=== PATIENT | male | born 1955 | race Caucasian/White ===

== ENCOUNTER 2019-02-12 13:08 | Emergency (ER) | payer OTHER ==
[2019-02-12] MEDS ORDERED: NA CHLORIDE 0.9% 500 ML ONE (14:49)
[2019-02-12] MEDS ORDERED: ONDANSETRON 4 MG/2 ML VIAL ONE (14:49)
[2019-02-12] MEDS ORDERED: DICYCLOMINE HCL 10 MG CAP ONE (14:58)
--- NOTE | 2019-02-12 15:37 | EDPHYS ---
Physician Documentation [facility] Name: Fercho Gamboa Age: 64 yrs Sex: Male : 1955 Arrival Date: 02/12/2019 Time: 13:12 Bed 18 Private MD: ED Physician Mic Montague HPI: 02/12 14:34 This 64 yrs old Male presents to ER via Ambulatory with complaints of ps1 Vomiting/Diarrhea. 14:34 nausea, vomiting, diarrhea x 1 day. Has not been able to keep anything down. No ps1 medications thus far. Had an upper respiratory infection week prior. No abdominal pain or fever. . Historical: - Allergies: 13:33 No Known Allergies; aa5 - PMHx: 13:33 Hyperlipidemia; Gout; Seasonal allergies; aa5 - PSHx: 13:33 None; aa5 - Immunization history:: Flu vaccine is up to date. - Social history:: Smoking status: Patient/guardian denies using tobacco. - Ebola Screening: : No symptoms or risks identified at this time. ROS: 14:34 Constitutional: Negative for fever, chills, and weight loss, Eyes: Negative for injury, ps1 pain, redness, and discharge, ENT: Negative for injury, pain, and discharge, Cardiovascular: Negative for chest pain, palpitations, and edema, Respiratory: Negative for shortness of breath, cough, wheezing, and pleuritic chest pain, MS/Extremity: Negative for injury and deformity, Skin: Negative for injury, rash, and discoloration, Neuro: Negative for headache, weakness, numbness, tingling, and seizure. 14:34 Abdomen/GI: Positive for nausea, vomiting, and diarrhea. Exam: 14:34 Constitutional: This is a well developed, well nourished patient who is awake, alert, ps1 and in no acute distress. Head/Face: Normocephalic, atraumatic. Eyes: Pupils equal round and reactive to light, extra-ocular motions intact. Lids and lashes normal. Conjunctiva and sclera are non-icteric and not injected. Chest/axilla: Normal chest wall appearance and motion. Nontender with no deformity. No lesions are appreciated. Cardiovascular: Regular rate and rhythm. No gallops, murmurs, or rubs. Normal PMI, no JVD. No pulse deficits. Respiratory: Lungs have equal breath sounds bilaterally, clear to auscultation and percussion. No rales, rhonchi or wheezes noted. No increased work of breathing, no retractions or nasal flaring. Abdomen/GI: Soft, non-tender, with normal bowel sounds. No distension or tympany. No guarding or rebound. No evidence of tenderness throughout. MS/ Extremity: Pulses equal, no cyanosis. Neurovascular intact. Full, normal range of motion. Neuro: Awake and alert, GCS 15, oriented to person, place, time, and situation. Cranial nerves II-XII grossly intact. Sensory grossly intact. Psych: Awake, alert, with orientation to person, place and time. Behavior, mood, and affect are within normal limits. Vital Signs: 13:34 BP 124 / 85; Pulse 56; Resp 16 S; Temp 99.6(O); Pulse Ox 96% on R/A; Weight 95.25 kg aa5 (R); Height 5 ft. 11 in. (180.34 cm) (R); Pain 7/10; 13:48 BP 141 / 92; Pulse 89; Resp 18; Pulse Ox 95% on R/A; hj 14:30 BP 138 / 89; Pulse 85; Resp 18; Pulse Ox 100% on R/A; hj 15:51 BP 135 / 85; Pulse 86; Resp 18; Pulse Ox 100% on R/A; hj 13:34 Body Mass Index 29.29 (95.25 kg, 180.34 cm) aa5 MDM: 14:46 Patient medically screened. ps1 Administered Medications: 14:39 Drug: NS 0.9% 500 ml Route: IV; Rate: bolus; Site: right antecubital; hj 15:49 Follow up: IV Status: Completed infusion; IV Intake: 500ml hj 14:39 Drug: Zofran 4 mg Route: IVP; Site: right antecubital; hj 14:48 Follow up: Response: No adverse reaction pc1 14:44 Drug: Bentyl 20 mg Route: PO; pc1 14:48 Follow up: Response: No adverse reaction pc1 Disposition: 02/12/19 15:37 Discharged to Home. Impression: Viral Gastroenteritis, nausea, vomiting, diarrhea. - Condition is Stable. - Discharge Instructions: Viral Gastroenteritis, Adult. - Prescriptions for Bentyl 10 mg Oral Capsule - take 1 capsule by ORAL route every 6 hours As needed; 40 capsule. Zofran 4 mg Oral Tablet - take 1 tablet by ORAL route every 12 hours As needed; 20 tablet. - Medication Reconciliation Form, Thank You Letter, Antibiotic Education, Prescription Opioid Use form. - Follow up: Private Physician; When: As needed; Reason: Recheck today's complaints. Follow up: Emergency Department; When: As needed. - Problem is new. - Symptoms have improved. Signatures: Leah Wilson RN RN aa5 Gagandeep Barragan RN RN hj Mic Montague MD MD ps1 Esequiel, Steve pc1 Corrections: (The following items were deleted from the chart) 15:50 15:37 02/12/2019 15:37 Discharged to Home. Impression: Viral Gastroenteritis; nausea, hj vomiting, diarrhea. Condition is Stable. Forms are Medication Reconciliation Form, Thank You Letter, Antibiotic Education, Prescription Opioid Use. Follow up: Private Physician; When: As needed; Reason: Recheck today's complaints. Follow up: Emergency Department; When: As needed. Problem is new. Symptoms have improved. ps1
--- NOTE | 2019-02-12 15:37 | ER ---
Nurse's Notes [facility] Name: Fercho Gamboa Age: 64 yrs Sex: Male : 1955 Arrival Date: 02/12/2019 Time: 13:12 Bed 18 Private MD: Diagnosis: Viral Gastroenteritis;nausea, vomiting, diarrhea Presentation: 02/12 13:32 Presenting complaint: Patient states: nausea/vomiting/diarrhea, fever, abd cramping, aa5 and back pain that began yesterday. Transition of care: patient was not received from another setting of care. Onset of symptoms was January 2019. Risk Assessment: Do you want to hurt yourself or someone else? Patient reports no desire to harm self or others. Initial Sepsis Screen: Does the patient meet any 2 criteria? No. Patient's initial sepsis screen is negative. Does the patient have a suspected source of infection? No. Patient's initial sepsis screen is negative. Care prior to arrival: None. 13:32 Method Of Arrival: Ambulatory aa5 13:32 Acuity: GUSTAVO 3 aa5 Triage Assessment: 13:36 General: Appears in no apparent distress. uncomfortable, Behavior is calm, cooperative, hj appropriate for age. Pain: Complains of pain in abdomen. GI: Reports lower abdominal pain, upper abdominal pain, diarrhea, nausea, vomiting. Historical: - Allergies: 13:33 No Known Allergies; aa5 - PMHx: 13:33 Hyperlipidemia; Gout; Seasonal allergies; aa5 - PSHx: 13:33 None; aa5 - Immunization history:: Flu vaccine is up to date. - Social history:: Smoking status: Patient/guardian denies using tobacco. - Ebola Screening: : No symptoms or risks identified at this time. Screenin:36 Abuse screen: Denies threats or abuse. Denies injuries from another. Nutritional hj screening: No deficits noted. Tuberculosis screening: No symptoms or risk factors identified. Fall Risk None identified. Assessment: 13:37 GI: Abdomen is non-distended. hj 13:37 General: Appears in no apparent distress. uncomfortable, Behavior is calm, cooperative, hj appropriate for age. Pain: Complains of pain in abdomen. Neuro: Level of Consciousness is awake, alert, obeys commands, Oriented to person, place, time, situation, Appropriate for age. Cardiovascular: Capillary refill < 3 seconds Patient's skin is warm and dry. Respiratory: Airway is patent Respiratory effort is even, unlabored, Respiratory pattern is regular, symmetrical. GI: Reports lower abdominal pain, upper abdominal pain, diarrhea, nausea, vomiting. : No signs and/or symptoms were reported regarding the genitourinary system. EENT: No signs and/or symptoms were reported regarding the EENT system. Derm: No signs and/or symptoms reported regarding the dermatologic system. Musculoskeletal: No signs and/or symptoms reported regarding the musculoskeletal system. 13:47 Reassessment: awaiting for provider;. hj 15:03 Reassessment: Patient and/or family updated on plan of care and expected duration. Pain hj level reassessed. Patient is alert, oriented x 3, equal unlabored respirations, skin warm/dry/pink. Patient states feeling better. Patient states symptoms have improved. Vital Signs: 13:34 BP 124 / 85; Pulse 56; Resp 16 S; Temp 99.6(O); Pulse Ox 96% on R/A; Weight 95.25 kg aa5 (R); Height 5 ft. 11 in. (180.34 cm) (R); Pain 7/10; 13:48 BP 141 / 92; Pulse 89; Resp 18; Pulse Ox 95% on R/A; hj 14:30 BP 138 / 89; Pulse 85; Resp 18; Pulse Ox 100% on R/A; hj 15:51 BP 135 / 85; Pulse 86; Resp 18; Pulse Ox 100% on R/A; hj 13:34 Body Mass Index 29.29 (95.25 kg, 180.34 cm) aa5 ED Course: 13:12 Patient arrived in ED. mr 13:32 Arm band placed on. aa5 13:33 Triage completed. aa5 13:36 Gagandeep Barragan, RN is Primary Nurse. hj 13:36 Patient has correct armband on for positive identification. Placed in gown. Bed in low hj position. Call light in reach. Side rails up X 1. Adult w/ patient. 13:46 Initial lab(s) drawn, by me. Inserted saline lock: 22 gauge in right antecubital area, hj using aseptic technique. Blood collected. 14:30 Mic Montague MD is Attending Physician. ps1 15:48 No provider procedures requiring assistance completed. IV discontinued, intact, hj bleeding controlled, No redness/swelling at site. Pressure dressing applied. Administered Medications: 14:39 Drug: NS 0.9% 500 ml Route: IV; Rate: bolus; Site: right antecubital; hj 15:49 Follow up: IV Status: Completed infusion; IV Intake: 500ml hj 14:39 Drug: Zofran 4 mg Route: IVP; Site: right antecubital; hj 14:48 Follow up: Response: No adverse reaction pc1 14:44 Drug: Bentyl 20 mg Route: PO; pc1 14:48 Follow up: Response: No adverse reaction pc1 Intake: 15:49 IV: 500ml; Total: 500ml. hj Outcome: 15:37 Discharge ordered by MD. ps1 15:48 Discharged to home ambulatory, with family. hj 15:48 Condition: stable 15:48 Discharge instructions given to patient, family, Instructed on discharge instructions, follow up and referral plans. medication usage, Demonstrated understanding of instructions, follow-up care, medications, Prescriptions given X 2. 15:50 Patient left the ED. Signatures: Mirela McclendonderLeah hammonds, RN RN aa5 Gagandeep Barragan, ROB RN Mic Hernández MD MD ps1 Esequiel, Steve pc1 Corrections: (The following items were deleted from the chart) 13:33 13:32 Initial Sepsis Screen: Does the patient meet any 2 criteria? No. Patient's aa5 initial sepsis screen is negative. Does the patient have a suspected source of infection? No. Patient's initial sepsis screen is negative. aa5 13:34 13:34 BP 124 / 85; Pulse 56bpm; Resp 16bpm; Spontaneous; Pulse Ox 96% RA; Temp 99.6F aa5 Oral; 95.25 kg Reported; Height 5 ft. 11 in. Reported; BMI: 29.2; aa5
== END 2019-02-12 15:50 | disposition home or self-care (01) ==
LOC: ER 13:08
DX: A08.4 Viral intestinal infection, unspecified (principal)
CPT/HCPCS: 96361; 96374; 99284; J2405